=== PATIENT | male | born 1995 | race Caucasian/White ===

== ENCOUNTER 2017-04-04 16:36 | Emergency (ER) | payer BC, OTHER ==
[2017-04-04 16:40] VITALS: TEMP 98.2
--- NOTE | 2017-04-04 16:49 | EDPHY ---
H & P Stated Complaint: Injury 2 weeks ago to right knee - sent by to R/O clot Time Seen by Provider: 04/04/17 16:49 HPI/ROS: CHIEF COMPLAINT: Right calf pain HISTORY OF PRESENT ILLNESS: The patient presents to the ED with a 3 day history of calf pain. The patient sustained an injury to his right knee including a microfracture of the tibial plateau and MCL sprain while playing basketball 2 weeks ago. He has been immobilized in using crutches since that time. He has no prior history of PE or DVT. He denies associated chest pain or shortness of breath. The patient reports a moderate pain in his right calf which he rates as a 5/10. He denies associated numbness or weakness. REVIEW OF SYSTEMS: A comprehensive 10 point review of systems is otherwise negative aside from elements mentioned in the history of present illness. Source: Patient Exam Limitations: No limitations - Personal History Current Tetanus Diphtheria and Acellular Pertussis (TDAP): No - Medical/Surgical History Hx Asthma: No Hx Chronic Respiratory Disease: No Hx Diabetes: No Hx Cardiac Disease: No Hx Renal Disease: No Hx Cirrhosis: No Hx Alcoholism: No Hx HIV/AIDS: No Hx Splenectomy or Spleen Trauma: No Other PMH: Denies - Social History Smoking Status: Never smoked - Physical Exam Exam: General Appearance: Alert, no distress Eyes: Pupils equal and round no pallor or injection ENT, Mouth: Mucous membranes moist Respiratory: There are no retractions, lungs are clear to auscultation Cardiovascular: Regular rate and rhythm Gastrointestinal: Abdomen is soft and nontender, no masses, bowel sounds normal Neurological: A&O, normal motor function, normal sensory exam, normal cranial nerves Skin: Warm and dry, no rashes Musculoskeletal: Neck is supple nontender Extremities: Mild right calf tenderness, no appreciable asymmetry, 2+ dorsalis pedis posterior tibial pulse noted bilateral lower extremities Constitutional: Initial Vital Signs Temperature (C) 36.8 C 04/04/17 16:37 Heart Rate 85 04/04/17 16:37 Respiratory Rate 16 04/04/17 16:37 Blood Pressure 127/66 H 04/04/17 16:37 O2 Sat (%) 95 04/04/17 16:37 O2 Delivery Mode Room Air Allergies/Adverse Reactions: No Known Allergies Allergy (Unverified 04/04/17 16:40) Home Medications: Medication Instructions Recorded Adderall 10 mg Tablet 04/04/17 Medical Decision Making - Diagnostics Imaging Results: Imaging Impressions Extremity Venous Study 04/04/17 16:49 Impression: No deep venous thrombosis right leg. Findings and recommendations discussed with Emergency Department physician, Jose Carlos Carlos at 17:29 hour, 04/04/2017. Final report concurs with initial preliminary interpretation. ED Course/Re-evaluation: The patient presents to the ED with complaints of right calf pain in the setting of a recent right knee injury. The patient had mild calf tenderness on exam without appreciable asymmetry. The patient was taken for right lower quadrant ultrasound which demonstrates no evidence of a DVT. At this point time I do feel the patient can continue conservative treatment for presumed musculoskeletal injury. The patient is advised to return to the ED for any markedly worsening symptoms, chest pain or shortness of breath. The patient should have a repeat ultrasound in 2 weeks for any ongoing symptoms. Differential Diagnosis: Differential diagnosis considered includes myofascial strain, DVT, arterial thrombosis, ruptured Guajardo cyst Departure - Departure Disposition: Home, Routine, Self-Care Clinical Impression: Right knee sprain, Right calf pain Condition: Good Instructions: Musculoskeletal Pain (ED) Additional Instructions: 1. Please return to the emergency department for any worsening symptoms, chest pain or shortness of breath. 2. Your ultrasound demonstrates no evidence of a DVT today. You should repeat the study in 2 weeks if you have any ongoing calf pain to ensure that a blood clot has not developed. 3. Continue your recommended recovery for your knee sprain. Tylenol and ibuprofen as needed for pain. Referrals: SANDY Ramon,. [Clinic] - As per Instructions
[2017-04-04 17:50] VITALS: BP 121/69; PULSE 71; RESP 18; O2SAT 94
== END 2017-04-04 17:51 | disposition home or self-care (01) ==
DX: S83.91XA Sprain of unspecified site of right knee, initial encounter (principal); X58.XXXA Exposure to other specified factors, initial encounter; Y99.8 Other external cause status; Y93.67 Activity, basketball

== ENCOUNTER 2017-10-13 19:04 | Emergency (ER) | payer BC, OTHER ==
[2017-10-13] MEDS ORDERED: LIDOCAINE 2% VISCOUS 15 ML UDCUP PO ONE (19:27)
--- NOTE | 2017-10-13 19:27 | EDPHY ---
General - History Smoking Status: Never smoked Time Seen by Provider: 10/13/17 19:15 Narrative: CHIEF COMPLAINT: Facial trauma HISTORY OF PRESENT ILLNESS: Patient reports lip laceration, dental pain after being hit in the face with a horseshoe. He said that they were playing horseshoes and got 1 stuck open a tree. They knocked out of a tree and struck him in the face. This happened 20 min prior to arrival. It struck him directly in the lower lip and his upper teeth. Did not lose consciousness. He has no neck pain. No headache. He has moderate to severe pain in the upper teeth and the lower lip. He is able to open and close his mouth without difficulty. No vomiting. No injury elsewhere. Tetanus up-to-date. He feels that he fractured 1 of his teeth. He did not swallow this. No other associated complaints or modifying factors. REVIEW OF SYSTEMS: Ten systems reviewed and are negative unless otherwise noted in the HPI PCP: None locally SPECIALISTS: None PAST MEDICAL HISTORY: Attention deficit hyperactivity disorder PAST SURGICAL HISTORY: No recent surgical history SOCIAL HISTORY: Nonsmoker. Occasional alcohol. Originally from [place], currently [employer] student FAMILY HISTORY: Noncontributory EXAMINATION General Appearance: Alert, no distress Head: normocephalic, atraumatic. No Maldonado sign. No raccoon eyes. No depression or trauma to the scalp Eyes: Pupils equal and round, no conjunctival pallor or injection. EOM symmetric ENT, Mouth: Mucous membranes moist. Uvula midline. Upper lip is unremarkable. The alveolar reveals small hematoma over the right bicuspid. The right lateral incisor is partially displaced but remains in contact with gum. No exposure of the nerve root. Lower alveolar ridge unremarkable. No trismus. No fracture of the mucosa. The lower lip has a laceration left of midline. There is small area involvement of the vermilion border. No pulsatile bleeding. No foreign body. Neck: Normal inspection, supple, non-tender. No meningeal signs. Respiratory: Lungs are clear to auscultation Cardiovascular: Regular rate. Good signs of perfusion Neurological: GCS 15. A&O, nonfocal, normal gait. Strength symmetric in all 4 limbs. Skin: Warm and dry, no rash. Lip laceration as above. Extremities: Nontender, no pedal edema Psychiatric: Mood and affect normal DIFFERENTIAL DIAGNOSES: Including but not limited to lip laceration, dental fracture, dental displacement, dental trauma, closed head injury, concussion MDM: 7:15 p.m. Blunt trauma to the mouth with 1 partially fractured tooth that remains well seated. There is a partially subluxed right lateral incisor on the maxillary teeth. No mucosal laceration. No trismus. There is a lip laceration that does involve the vermilion border on the lower lip that will require suture repair. He is awake alert no acute distress but I do not feel he warrants any CT scan by [place] CT head rules, nor do I feel he warrants this clinically. I discussed with Dr. Shelton and she agrees. I will proceed with irrigation suture repair. 7:40 p.m. I have administered a infraorbital block and left mental nerve block. Proceed with irrigation of laceration. 8:40 p.m. Lip laceration has been repaired without difficulty. I 1st thought there was involvement of the vermilion border. After wound was clean, there is no involvement of the vermilion border. This was tolerated well. I have also discussed the case with the on-call oral surgeon Dr. Alfosno. He recommends no further manipulation of the tooth as it remains in the socket. He would like the patient be placed on amoxicillin 500 mg 3 times daily. He recommends clear liquid or soft diet. No chewing with the anterior teeth. He would like to see the patient on Sunday morning. The patient will need to contact him. No further recommendations. 9:00 p.m. Patient re-evaluated. He is feeling well with minimal pain. He will be discharged home with amoxicillin as above. Short course of pain medication. ED precautions. He is comfortable this plan and discharged home stable condition. PROCEDURE: Dental Block, 1. Indication: Dental trauma, maxillary alveolar ridge, right lateral incisor Consent: Verbal Location: Right infraorbital nerve Anesthesia: Lidocaine 1% plain, 0.25% Marcaine plain, 5mL Description: Topical anesthesia applied 5 min. The upper buccal fold was identified. The above was infused just below the infraorbital foramen. Good anesthesia. Tolerated well Complications: None PROCEDURE: Dental Block, 2. Indication: Lower lip laceration Consent: Verbal Location: Left mental nerve block Anesthesia: Lidocaine 1% plain, 0.25% Marcaine plain, 5mL Description: topical lidocaine applied for 5 minutes. The buccal fold identified and the above was injected outside of the mental nerve, with care taken not to enter the mental foramen. Good anesthesia. Tolerated. No complication. Complications: None PROCEDURE: Laceration repair Consent: Verbal Location: Left lower lip Length of repair: Complexity: Complex, no involvement of the vermilion border Layer involvement: Single layer Anesthesia: Dental block as above Irrigation: Extensive Debridement: Minimal Procedure description: Following good anesthesia, the wound was copiously irrigated. Wound bed was explored with a sterile glove, and there is no foreign body noted. There are is some laceration of the wound borders. This was minimally debrided. Wound borders were approximated well with good hemostasis. Tolerated well without complication. Suture/Staple material: 6-0 Prolene, Wound care: Routine as discussed Suture/Staple removal: 5-7 Days PROCEDURE: Closed reduction of dental displacement Consent: Verbal Indication: Dental trauma with subluxation of tooth Location: Right lateral incisor of upper right central incisor, tooth 8. Anesthesia: Dental block as above Procedure: After time-out, and good anesthesia, the right central incisor was pulled back into its anatomic alignment. This was tolerated well with no pain. The tooth has remained in place without fixation. Complications: None SUPERVISION: Patient was independently examined, but I discussed the case with my secondary supervising physician Dr. Shelton ([facility]) The patient was evaluated and managed by the physician rehab care assistant. I have reviewed this chart and I agree with the findings and plan of care as documented , as indicated by my signature. I am the secondary supervising physician. ( Lorena Shelton) - Objective Vital Signs: Initial Vital Signs Temperature (C) 36.5 C 10/13/17 19:09 Heart Rate 94 10/13/17 19:09 Respiratory Rate 16 10/13/17 19:09 Blood Pressure 146/88 H 10/13/17 19:09 O2 Sat (%) 94 10/13/17 19:09 O2 Delivery Mode Room Air Allergies/Adverse Reactions: No Known Allergies Allergy (Verified 10/13/17 19:11) Home Medications: Medication Instructions Recorded Amoxicillin Trihydrate [Amoxil] 500 mg PO TID 7 Days cap 10/13/17 Concerta 10/13/17 oxyCODONE HCL/ACETAMINOPHEN 1 each PO Q4-6PRN PRN #7 tablet 10/13/17 [Percocet 5-325 mg Tablet] Medications Given: Discontinued Medications Amoxicillin (Amoxil Chewable 250 Mg Prepack#4) 1 btl TAKEHOME EDNOW ONE PRN Reason: Protocol Stop: 10/13/17 20:45 Last Admin: 10/13/17 20:51 Dose: 1 btl Lidocaine (Lidocaine 2% Viscous) 5 ml PO EDNOW ONE Stop: 10/13/17 19:28 Last Admin: 10/13/17 19:37 Dose: 5 ml Oxycodone/Acetaminophen (Percocet 5/325mg Prepack#4) 1 btl TAKEHOME EDNOW ONE Stop: 10/13/17 20:14 Last Admin: 10/13/17 20:51 Dose: 1 btl Departure - Departure Disposition: Home, Routine, Self-Care Clinical Impression: Laceration of lower lip, Dental trauma Condition: Good Instructions: Oxycodone/Acetaminophen (By mouth), Amoxicillin/Clavulanate Potassium (By mouth), Care For Your Stitches (DC), Laceration (ED), Acute Dental Trauma (ED) Additional Instructions: 1. Daily wound care of the lip include a thin layer bacitracin 2. You will need to see a dentist tomorrow for the dental trauma of the incisor 3. ED precautions for worsening pain, fever, headache, vomiting 4. Return to emergency department in 5-7 days for suture removal of the lip Referrals: Christophe Alfonso DDS [Doctor of Dental Surgery] - As per Instructions Stand Alone Forms: School Excuse Prescriptions: Amoxicillin Trihydrate [Amoxil] 500 mg PO TID 7 Days cap oxyCODONE HCL/ACETAMINOPHEN [Percocet 5-325 mg Tablet] 1 each PO Q4-6PRN PRN #7 tablet PRN Reason: Pain, Breakthrough
[2017-10-13] MEDS ORDERED: OXYCODONE/APAP 5/325MG PREPACK#4 BTL TAKEHOME ONE (20:13)
[2017-10-13] MEDS ORDERED: AMOXICILLIN 250 MG PREPACK#4 BTL TAKEHOME ONE (20:44)
[2017-10-13 20:49] VITALS: BP 144/87
== END 2017-10-13 20:53 | disposition home or self-care (01) ==
PROC: 0CQ0XZZ Repair Upper Lip, External Approach (ICD-10-PCS; principal; 2017-10-13)
DX: S01.511A Laceration without foreign body of lip, initial encounter (principal); W22.8XXA Striking against or struck by other objects, initial encounter; Y99.8 Other external cause status; Y93.89 Activity, other specified